=== PATIENT | female | born 1945 | race Asian ===

== ENCOUNTER 2017-05-17 20:21 | Observation (INO) | payer MEDICARE, OTHER ==
[~2017-05-17] VITALS: Ht 142.2 cm; Wt 46.0 kg
[2017-05-17 20:45] VITALS: Ht 142.2 cm; Wt 46.0 kg
[2017-05-18] VITALS (16 sets, daily range): BP systolic 95–157; BP diastolic 36–69; PULSE 64–75; RESP 15–24; TEMP 98.1
--- NOTE | 2017-05-18 01:56 | ERD ---
ER Documentation Chief Complaint Date/Time DATE: 05/18/17 TIME: 01:54 Chief Complaint c/o fish bone to throat. Painful to swallow. HPI 71-year-old female presents to emergency department for complaints of foreign body sensation in the throat, patient was eating fish, feels like a bone got stuck in the throat. Patient has pain upon swallowing, sharp pain, 4/10 scale, denies any shortness of breath. Patient denies any wheezing. ROS All systems reviewed and are negative except as per history of present illness. Medications Home Meds Reported Medications [none] Unknown Strength No Conflict Check 05/18/17 PMhx/Soc Anesthesia Reaction: No Hx Neurological Disorder: No Hx Respiratory Disorders: No Hx Cardiac Disorders: Yes (HTN ) Hx Psychiatric Problems: No Hx Miscellaneous Medical Probl: No Hx Alcohol Use: No Hx Substance Use: No Hx Tobacco Use: No Smoking Status: Never smoker FmHx Family History: No coronary disease, No diabetes, No other Physical Exam Vitals Vital Signs Date Time Temp Pulse Resp B/P Pulse Ox O2 Delivery O2 Flow Rate FiO2 05/17/17 20:45 98.6 78 18 195/84 95 Physical Exam GENERAL: The patient is well developed and appropriate for usual state of health, in no apparent distress. HEENT: Atraumatic. Ears: Normal tympanic membrane, no erythema or bulging. No ear canal swelling. No ear discharge. Nose: normal nasal turbinates, no erythema or swelling. Normal nasal discharge. Throat: oropharynx edematous, no visualized foreign body. No tonsillar swelling or tonsillar exudates. No lymphadenopathy. CHEST: Clear to auscultation bilaterally. There are no rales, wheezes or rhonchi. HEART: Regular rate and rhythm. No murmurs, clicks, rubs or gallops. No S3 or S4. ABDOMEN: Soft, nontender and nondistended. Good bowel sounds. No rebound or guarding. No gross peritonitis. No gross organomegaly or masses. No Mchugh sign or McBurney point tenderness. BACK: No midline or flank tenderness. EXTREMITIES: Equal pulses bilaterally. There is no peripheral clubbing, cyanosis or edema. No focal swelling or erythema. Full range of motion. Grossly neurovascularly intact. NEURO: Alert and oriented. Cranial nerves 2-12 intact. Motor strength in all 4 extremities with 5/5 strength. Sensation grossly intact. Normal speech and gait. SKIN: There is no apparent rash or petechia. The skin is warm and dry. HEMATOLOGIC AND LYMPHATIC: There is no evidence of excessive bruising or lymphedema. No gross cervical, axillary, or inguinal lymphadenopathy. Results 24 hrs PROCEDURE: CT soft tissue neck without contrast. CLINICAL INDICATION: Swallowed a fish bone TECHNIQUE: The study was performed utilizing a GE 64-slice multidetector CT scanner. Direct thin section helically acquired axial sections were obtained through the neck without contrast. Coronal and sagittal reformations were obtained. The images were reviewed on a PACS workstation. The total CTDIvol is 9.11 mGy and the DLP is 255.67 mGy-cm. One or more of the following dose reduction techniques were used: automated exposure control, adjustment of the mA and/or kV according to patient size, or use of iterative reconstruction technique. COMPARISON: No prior studies are available for comparison. FINDINGS: Linear hyperdense structure is seen in the esophagus at the upper C6 level, axial image 48, coronal image 66. The foreign body is horizontal in position measuring 2.3 cm in length.. The nasopharynx, oropharynx, hypopharynx, and larynx are all normal in appearance. The trachea is clear. The parapharyngeal spaces are normal. The thyroid gland is normal in size with no focal mass lesions seen. The submandibular and parotid glands are unremarkable and normal in appearance. No pathologically enlarged lymph nodes are detected. Mild bilateral carotid bulb calcifications are seen. Interstitial densities are seen in the lungs, more pronounced in the right apex. Small nodular density seen in the superior left lower lobe, image 78. There are degenerative changes in the cervical spine, severe at C5-6. There is sclerosis of the left mastoid and soft tissue density in the right middle ear cavity. IMPRESSION: Foreign body in the esophagus at the upper C6 level. No evidence of perforation. Nonspecific interstitial densities in the lungs. Small nodular density in the superior left lower lobe. Physician Sea Date Time Electronically viewed and signed by Physician Sea on 05/18/2017 03: 18 CS/ CC: MIHIR FREDERICK NP Procedures/MDM Medical Decision making: Patient has a retained foreign body, fishbone in the esophagus in the level of C6, I discussed this case with my attending physician , Dr. Quinonez, most likely would need ENT evaluation and procedure for removal of foreign body. Patient will be transferred to ER when for further evaluation and management. Departure Diagnosis: Primary Impression: Retained foreign body Condition: Fair MIHIR FREDERICK NP May 18, 2017 01:56
--- NOTE | 2017-05-18 03:18 | RADRPT ---
PROCEDURE: CT soft tissue neck without contrast. CLINICAL INDICATION: Swallowed a fish bone TECHNIQUE: The study was performed utilizing a GE 64-slice multidetector CT scanner. Direct thin s ection helically acquired axial sections were obtained through the neck without contrast. Coronal a nd sagittal reformations were obtained. The images were reviewed on a PACS workstation. The total CT DIvol is 9.11 mGy and the DLP is 255.67 mGy-cm. One or more of the following dose reduction techniques were used: automated exposure control, adjust ment of the mA and/or kV according to patient size, or use of iterative reconstruction technique. COMPARISON: No prior studies are available for comparison. FINDINGS: Linear hyperdense structure is seen in the esophagus at the upper C6 level, axial image 48, coronal image 66. The foreign body is horizontal in position measuring 2.3 cm in length.. The nasopharynx, o ropharynx, hypopharynx, and larynx are all normal in appearance. The trachea is clear. The paraphary ngeal spaces are normal. The thyroid gland is normal in size with no focal mass lesions seen. The s ubmandibular and parotid glands are unremarkable and normal in appearance. No pathologically enlarg ed lymph nodes are detected. Mild bilateral carotid bulb calcifications are seen. Interstitial den sities are seen in the lungs, more pronounced in the right apex. Small nodular density seen in the s uperior left lower lobe, image 78. There are degenerative changes in the cervical spine, severe at C 5-6. There is sclerosis of the left mastoid and soft tissue density in the right middle ear cavity. IMPRESSION: Foreign body in the esophagus at the upper C6 level. No evidence of perforation. Nonspecific interstitial densities in the lungs. Small nodular density in the superior left lower lo be. Physician Sea Date Time Electronically viewed and signed by Physician Sea on 05/18/2017 03:18 /
[2017-05-18] MEDS ORDERED: VALS1TAB78 PO (05:25)
[2017-05-18] MEDS ORDERED: TENO300T2 PO (05:25)
[2017-05-18] MEDS ORDERED: ESOM40CA PO (05:25)
[2017-05-18] MEDS ORDERED: EZET10TA3 PO (05:25)
[2017-05-18] MEDS ORDERED: ACETAMINOPHEN 650 MG SUPP PR PRN (05:30)
[2017-05-18] MEDS ORDERED: ONDANSETRON 4 MG INJ IV PRN (05:30)
[2017-05-18] MEDS ORDERED: morphine 2 MG INJ IV PRN (05:30)
[2017-05-18] MEDS ORDERED: NACL 0.9% 3 ML SYG IV SCH (05:30)
[2017-05-18] MEDS ORDERED: PANTOPRAZOLE 40 MG INJ IV SCH (06:00)
[2017-05-18] MEDS: SOD CHLORIDE 0.9% 1,000 ML IV SCH ×2 (06:26→21:50)
--- NOTE | 2017-05-18 06:54 | HP ---
Date/Time of Note Date/Time of Note DATE: 05/18/17 TIME: 06:47 Assessment/Plan VTE Prophylaxis VTE Prophylaxis Intervention: SCD's Lines/Catheters IV Catheter Type (from Rust): Saline Lock Assessment/Plan Chief Complaint/Hosp Course This is a 71-year-old female being admitted to the [facility] floor for: #1 Foreign body in the esophagus: There is a foreign body at the upper C6 level in the esophagus. No evidence of perforation. At the current time we will keep the patient n.p.o. provide IV morphine for pain. Normal saline fluid hydration. ENT was consulted by the ED, await further management from ENT. #2 incidental nodular density: Incidental finding of a small nodular density of the superior left upper lobe of the lung seen on on on CT scan of the neck. Will obtain an x-ray and then discuss with patient. Patient likely can have this monitor as an outpatient. #3 hypertension: We will hold oral medication at this time secondary to #1. Will monitor blood pressure at this time if needed we will add on hydralazine as needed. #4 DVT prophylaxis: SCDs, Protonix Further treatment strategy will be implemented as per the clinical course Problems: HPI/ROS Admit Date/Time Admit Date/Time Hx of Present Illness Chief complaint: Food stuck in throat This is a 71-year-old female presents to emergency department for complaints of foreign body sensation in the throat, patient was eating fish, feels like a bone got stuck in the throat. Patient has pain upon swallowing, sharp pain, 4/ 10 scale, denies any shortness of breath. Patient denies any wheezing. Denies any nausea or vomiting. Allergies: NKDA medications: See SEP ROS Const: As per HPI Eyes : No pain discharge or redness or change in visual acuity ENT: As per HPI Respiratory: As per HPI Cardiovascular: No chest pain, palpitation, PND, or edema GI : no change in appetite, abdominal pain, nausea, vomiting, diarrhea, constipation, or change in the color his stool Genitourinary: No dysuria, hematuria, flank pain , discharge or CVA tenderness Musculoskeletal: No joint pain, back pain, neck pain, restricted range of motion in neck or joints Skin: No rash, bruising or hives Neuro: No headache, dizziness, syncope, seizure, focal weakness Endocrine: No polyuria, polydipsia, temperature intolerance Psych: No hallucination, depression, anxiety or suicidal ideation PMH/Family/Social Past Medical History Hypertension Past Surgical History Past Surgical Hx: no surgical history Family History Significant Family History: no pertinent family hx Social History Smoking Status: Never smoker Drug Use: none Exam/Review of Systems Vital Signs Vitals Vital Signs Date Time Temp Pulse Resp B/P Pulse Ox O2 Delivery O2 Flow Rate FiO2 05/18/17 06:34 98.1 67 18 155/70 99 Room Air Exam Exam General: This is a pleasant female lying in bed in mild distress from pain or throat HEENT: Atraumatic, normocephalic. The pupils are equal, round and reactive. Extraocular motor are intact, no foreign body visualized on examination of the oral cavity Neck: Tender to palpation along the anterior neck region Lungs: Clear to auscultation bilaterally no crackles rales or wheezing Heart: Normal S1-S2, Regular rhythm and rate. No murmur, S3, or S4 Abdomen: Soft , nontender, nondistended , bowel sounds are present. No guarding no rebound tenderness , No masses or organomegaly. No costovertebral temporal angle mass Extremities: Normal to inspection, no edema no cyanosis Neurologic: Normal mental status, speech normal, cranial nerves II through XII are intact, motor and sensory are intact, no focal weakness Additional Comments PROCEDURE: CT soft tissue neck without contrast. CLINICAL INDICATION: Swallowed a fish bone TECHNIQUE: The study was performed utilizing a GE 64-slice multidetector CT scanner. Direct thin section helically acquired axial sections were obtained through the neck without contrast. Coronal and sagittal reformations were obtained. The images were reviewed on a PACS workstation. The total CTDIvol is 9.11 mGy and the DLP is 255.67 mGy-cm. One or more of the following dose reduction techniques were used: automated exposure control, adjustment of the mA and/or kV according to patient size, or use of iterative reconstruction technique. COMPARISON: No prior studies are available for comparison. FINDINGS: Linear hyperdense structure is seen in the esophagus at the upper C6 level, axial image 48, coronal image 66. The foreign body is horizontal in position measuring 2.3 cm in length.. The nasopharynx, oropharynx, hypopharynx, and larynx are all normal in appearance. The trachea is clear. The parapharyngeal spaces are normal. The thyroid gland is normal in size with no focal mass lesions seen. The submandibular and parotid glands are unremarkable and normal in appearance. No pathologically enlarged lymph nodes are detected. Mild bilateral carotid bulb calcifications are seen. Interstitial densities are seen in the lungs, more pronounced in the right apex. Small nodular density seen in the superior left lower lobe, image 78. There are degenerative changes in the cervical spine, severe at C5-6. There is sclerosis of the left mastoid and soft tissue density in the right middle ear cavity. IMPRESSION: Foreign body in the esophagus at the upper C6 level. No evidence of perforation. Nonspecific interstitial densities in the lungs. Small nodular density in the superior left lower lobe. Mckayla Schroeder Physician Date Time Electronically viewed and signed by Mckayla Schroeder Physician on 05/18/2017 03: 18 CS/ CC: MIHIR FREDERICK [employer] Medications Medications Current Medications Sodium Chloride (NS) 1,000 ml @ 70 mls/hr [id number] IV Last administered on 06:26; Admin Dose 70 MLS/HR; Start 05/18/17 at 05:21 Ondansetron HCl (Zofran Inj) 4 mg Q6H PRN IV NAUSEA AND/OR VOMITING; Start at 05:30 Acetaminophen (Tylenol Supp) 650 mg Q6H PRN [place] PAIN LEVEL 1-3 OR FEVER; Start 05/18/17 at 05:30 Morphine Sulfate (morphine) 1 mg Q4H PRN IV SEVERE PAIN LEVEL 7-10; Start at 05:30 Pantoprazole (Protonix Iv) 40 mg DAILY@06 IV Last administered on 05/18/17 06 :25; Admin Dose 40 MG; Start 05/18/17 at 06:00 SHI BOTELLO May 18, 2017 06:54
--- NOTE | 2017-05-18 07:47 | RADRPT ---
PROCEDURE: XR Chest. CLINICAL INDICATION: Small nodular density in the left upper lobe on CT of neck TECHNIQUE: PA and Lateral views of the chest were obtained. COMPARISON: CT scan from earlier in the same day. FINDINGS: Atherosclerotic changes are seen in the aortic arch. The cardiac silhouette is unremarkable. The lungs are clear. No signs of pleural fluid or pneumothorax are seen. The osseous structures and soft tissues are unremarkable. IMPRESSION: No definite abnormalities are identified. The small nodular density in the left upper lobe on the CT scan of the neck from earlier in the same day is not visualized on this plain radiographs. A low do se screening CT could be performed for further evaluation and characterization. RPTAT:AAJJ Physician Lynn Date Time Electronically viewed and signed by Physician Lynn on 05/18/2017 07:46 /
[2017-05-18] MEDS ORDERED: LIDOCAINE 1% (MDV) 20 ML INJ ONE (19:38)
[2017-05-18] MEDS ORDERED: PROPOFOL 20 ML ONE (19:38)
[2017-05-18] MEDS ORDERED: LABETALOL HCL 20MG INJ ONE (19:45)
[2017-05-18] MEDS ORDERED: ONDANSETRON 4 MG INJ ONE (19:46)
--- NOTE | 2017-05-18 20:04 | CONS ---
Date/Time of Note Date/Time of Note DATE: 05/18/17 TIME: 20:00 Assessment/Plan Assessment/Plan Additional Assessment/Plan Assessment: Foreign body in the proximal esophagus (fishbone) History of hypertension Plan: EGD foreign body removal. Patient and were informed procedure including risks, benefits and alternatives. Agreeable to proceed. Further recommendation will depend on patient's clinical course . Consultation Date/Type/Reason Admit Date/Time Date of Consultation: May 18, 2017 Type of Consultation: GI Reason for Consultation Foreign body (fish bone) in the proximal esophagus Hx of Present Illness 71-year-old female with sensation of foreign body while eating fish. CT of the neck shows a significant foreign body in the proximal esophagus at level C6. The patient complains of odynophagia. Endoscopic evaluation attempt to remove foreign body will be undertaken at this time. The procedure was explained in detail to the patient including risks, benefits and alternatives. She is agreeable to proceed. Constitutional: improved, no complaints Eyes: no complaints ENT: no complaints Respiratory: no complaints Cardiovascular: no complaints Gastrointestinal: other (See HPI) Genitourinary: no complaints Musculoskeletal: no complaints Skin: no complaints Neurologic: no complaints Endocrine: no complaints Lymphatic: no complaints Psychological: nl mood/affect, no complaints Immunologic: no complaints Past Medical History Medical History: hypertension Past Surgical History Past Surgical Hx: no surgical history Family History Significant Family History: no pertinent family hx Social History Alcohol Use: none Smoking Status: Never smoker Drug Use: none Exam/Review of Systems Vital Signs Vitals Vital Signs Date Time Temp Pulse Resp B/P Pulse Ox O2 Delivery O2 Flow Rate FiO2 05/18/17 14:30 98.3 63 18 152/69 96 05/18/17 08:06 Room Air Exam PHYSICAL EXAMINATION: GENERAL: Well developed, well nourished, alert & oriented x 3, in no acute distress SKIN: No lesions, no stigmata chronic liver disease, no evidence of bleeding diathesis LYMPHATIC: No palpable lymphadenopathy. HEAD: Normocephalic, atraumatic, no tenderness. EYES: Pupils equal reactive to light and accommodation, full extraocular movements, sclera clear, non-icteric, no discharge. EARS/NOSE AND THROAT: Ears normal, nose normal, oropharynx normal, oral membranes well hydrated without lesions. NECK: Supple, no masses, thyroid normal, JVP within normal limits, carotids normal without bruits. CHEST: Inspection within normal limits. CARDIOVASCULAR: Heart: Regular rate and rhythm, no murmurs, gallops or rubs. Peripheral pulses present within normal limits, no cyanosis, clubbing or edemas. No pulsatile abdominal mass RESPIRATORY: Lungs clear to auscultation and percussion, no wheezing, no rubs GASTROINTESTINAL AND LIVER: Abdomen: Soft, non tenderness, non-distended, no hernias, no masses, no organomegaly, no ascites, no guarding, no rebound tenderness, normoactive bowel sounds. Rectal: Deferred. GENITOURINARY: [Female genitalia within normal limits.] EXTREMITIES: No cyanosis, clubbing or edema. [MUSCULO-SKELETAL: Gait and station within normal limits, range of motion adequate.] Medications Medications Current Medications Sodium Chloride (NS) 1,000 ml @ 70 mls/hr [id number] IV Last administered on 06:26; Admin Dose 70 MLS/HR; Start 05/18/17 at 05:21 Ondansetron HCl (Zofran Inj) 4 mg Q6H PRN IV NAUSEA AND/OR VOMITING; Start at 05:30 Acetaminophen (Tylenol Supp) 650 mg Q6H PRN [place] PAIN LEVEL 1-3 OR FEVER; Start 05/18/17 at 05:30 Morphine Sulfate (morphine) 1 mg Q4H PRN IV SEVERE PAIN LEVEL 7-10; Start at 05:30 Famotidine (Pepcid Iv) 20 mg BID IV ; Start 05/19/17 at 09:00 Copies To: CC: AYDEE LOVE MD, MORDO MD May 18, 2017 20:04
--- NOTE | 2017-05-18 20:08 | OPPN ---
Date/Time of Note Date/Time of Note DATE: 05/18/17 TIME: 20:04 Proc Note GI Procedure Date 05/18/17 Indication: other (Foreign body in the proximal esophagus) Pre-procedure Diagnosis Foreign body proximal esophagus Post-procedure Diagnosis Impression: Foreign body/fish bone measuring approximately 3 cm lodged in the proximal esophagus. Post foreign body removal with no apparent injury Otherwise normal EGD Plan: Barium swallow with Gastrografin early tomorrow morning Pending review restart oral diet and possible discharge . Procedure Performed: Endoscopy (Plus foreign body removal) Surgeon AYDEE LOVE MD See signature line Silk Screen Cutter none Anesthesia Type: general Anesthesiologist: DA RANDALL DO Tourniquet Time none EBL none Transfusion required none Biopsy 1: None Grafts/Implants none Tubes/Drains none Complication(s) none Disposition: PACU Procedure Description Preoperative Diagnosis: After informed consent, with the patient/relatives understanding the procedure, its indications, potential risks and complications, including but not limited to : allergic reaction, bleeding, perforation or infection, and after all pertinent questions were answered to the patients satisfaction, the patient/ relatives signed witnessed informed consent. Following this, premedication was administered slowly IV push under careful cardiovascular and respiratory monitoring with pulse oximetry, automatic blood pressure, and rotogravure press operator. Once the sedative effect was achieved the patient was place in the left lateral decubitus, the panendoscope was introduced and advanced under visual control. Careful examination of the upper gastrointestinal tract, both on insertion as well as withdrawal of the instrument disclosing the following findings: ESOPHAGUS: the mucosa of the entire esophagus was carefully examined and showed the following findings: There is fishbone measuring approximately 3 cm horizontally impacted in the proximal esophagus were able to carefully dislodge 1 of the ends of the fishbone to turn it protocol and then secured with a grasping forceps and retrieved it with care and with no evidence of injury. Reexamination of the mucosa he mucosa appears within normal limits. There is no evidence of esophagitis, varices, neoplasm, or stricture. No Hiatal Hernia identified. STOMACH: Upon entrance to the stomach air was insufflated, the gastric saunders distended normally. The mucosa of the fundus, body and antrum of the stomach was carefully examined both head-on and on retroflexion, and showed the following findings: the mucosa appears within normal limits with no abnormalities. There is no evidence of gastritis, ulcers or neoplasm. PYLORUS: The pylorus was carefully examined and showed the following findings: the pylorus appears patent and within normal limits, with no evidence of gastric outlet obstruction. DUODENUM: The duodenal mucosa was carefully examined in the duodenal bulb as well as the second portion of the duodenum and showed the following findings: the mucosa appears unremarkable with no evidence of duodenitis, ulcer or neoplasm. Copies To: CC: AYDEE LOVE MD, MORDO MD May 18, 2017 20:08
[2017-05-19 02:14] VITALS: BP 109/54; RESP 20
[2017-05-19 07:58] VITALS: BP 123/59; RESP 16
[2017-05-19] MEDS ORDERED: FAMOTIDINE 20 MG INJ IV SCH (09:00)
[2017-05-19] MEDS: SOD CHLORIDE 0.9% 1,000 ML IV SCH ×2 (09:57→12:21)
--- NOTE | 2017-05-19 10:12 | PN ---
Date/Time of Note Date/Time of Note DATE: 05/19/17 TIME: 10:00 Assessment/Plan VTE Prophylaxis VTE Prophylaxis Intervention: ambulation Lines/Catheters IV Catheter Type (from Nrs): Peripheral IV Assessment/Plan Chief Complaint/Hosp Course Assessment: Foreign body in the proximal esophagus (fishbone) History of hypertension Plan: EGD foreign body removal 05/18/17 * Foreign body/fish bone measuring approximately 3 cm lodged in the proximal esophagus. * Post foreign body removal with no apparent injury * Otherwise normal EGD Barium swallow with Gastrografin today Pending results restart oral diet and possible discharge Subjective: Course reviewed with nursing staff Patient interviewed and examined All labs, imaging and other results reviewed The patient is feeling well Headed down for barium swallow She feels like she is ready to eat No complaints of pain or dysphasia . Problems: Exam/Review of Systems Vital Signs Vitals Vital Signs Date Time Temp Pulse Resp B/P Pulse Ox O2 Delivery O2 Flow Rate FiO2 05/19/17 07:58 98.3 61 16 123/59 96 05/18/17 21:11 Room Air Intake and Output 05/18/17 05/18/17 05/19/17 15:00 23:00 07:00 Intake Total 735 ml 560 ml Output Total 600 ml Balance 135 ml 560 ml Exam Constitutional: alert, oriented Psych: no complaints Head: atraumatic, normocephalic Eyes: nl conjunctiva ENMT: nl external ears & nose Neck: non-tender, supple Respiratory: clear to auscultation Cardiovascular: regular rate and rhythm Gastrointestinal: nl liver, spleen, non-tender, soft Genitourinary - Female: nl external genitalia Musculoskeletal: nl extremities to inspection Extremities: normal pulses Skin: nl turgor Medications Medications Current Medications Sodium Chloride (NS) 1,000 ml @ 70 mls/hr [id number] IV Last administered on t 06:26; Admin Dose 70 MLS/HR; Start 05/18/17 at 05:21 Ondansetron HCl (Zofran Inj) 4 mg Q6H PRN IV NAUSEA AND/OR VOMITING; Start at 05:30 Acetaminophen (Tylenol Supp) 650 mg Q6H PRN [place] PAIN LEVEL 1-3 OR FEVER; Start 05/18/17 at 05:30 Morphine Sulfate (morphine) 1 mg Q4H PRN IV SEVERE PAIN LEVEL 7-10; Start at 05:30 Famotidine (Pepcid Iv) 20 mg BID IV Last administered on 05/19/17t 08:44; Admin Dose 20 MG; Start 05/19/17 at 09:00 CASEY FERMIN May 19, 2017 10:11
[2017-05-19] MEDS ORDERED: DIATR MEGLU/DIATRIZOATE SODIUM 120 ML BTL ONE (10:47)
--- NOTE | 2017-05-19 11:30 | RADRPT ---
PROCEDURE: Gastrographin esophagram CLINICAL INDICATION: 71-year-old female with history of fish bone stuck in the esophagus. Status p ost endoscopic removal. Rule out esophageal leak. TECHNIQUE: Esophagram performed following oral ingestion of gastrographin with multiple spot image s of the esophagus obtained. Fluoroscopic time: 0.7 minutes Number of images/sequences: 4.0 COMPARISON: None FINDINGS: The esophagus was normal size shape position and motility. Mucosal fold pattern appears within edyta l limits. There is no evidence of mucosal abnormality, diverticula, mass or stenosis. There was no evidence of aspiration or penetration. There was no evidence of hiatal hernia or gastroesophageal r eflux seen during the examination. Visualized portions of the stomach appear normal. IMPRESSION: Normal esophagram. No evidence of contrast extravasation or leakage. RPTAT: QQ .Scot Moore MD, Date Time Electronically viewed and signed by .Scot Moore MD, on 05/19/2017 11:30 .L/
[2017-05-19 13:16] VITALS: BP 140/65; RESP 18
--- NOTE | 2017-05-19 14:25 | DS ---
Date/Time of Note Date/Time of Note DATE: 05/19/17 TIME: 14:19 Discharge Summary Admission/Discharge Info Admit Date/Time May 18, 2017 at 03:59 Discharge Date/Time Patient Condition: Good Hx of Present Illness Chief complaint: Food stuck in throat This is a 71-year-old female presents to emergency department for complaints of foreign body sensation in the throat, patient was eating fish, feels like a bone got stuck in the throat. Patient has pain upon swallowing, sharp pain, 4/ 10 scale, denies any shortness of breath. Patient denies any wheezing. Denies any nausea or vomiting. Allergies: NKDA medications: See [facility] Hospital Course Dr Nelson perormed EGD foreign body removal 05/18/17 * Foreign body/fish bone measuring approximately 3 cm lodged in the proximal esophagus. * Post foreign body removal with no apparent injury * Otherwise normal EGD Barium swallow with Gastrografin was performed which was nomral Patient tolerated normal PO today Cleared for discharge . Home Meds Reported Medications Ezetimibe* (Zetia*) 10 Mg Tablet, 10 MG PO DAILY, TAB 05/18/17 Tenofovir Disoproxil Fumarate (Viread) 300 Mg Tablet, 300 MG PO DAILY, TAB 05/18/17 Esomeprazole Mag Trihydrate (Nexium) 40 Mg Capsule.dr, 40 MG PO DAILY, #30 CAP 05/18/17 Valsartan-Hydrochlorothiazide (Valsartan-HCTZ) 160-25 Mg Tablet, 1 TAB PO DAILY , #30 TAB 05/18/17 Discontinued Reported Medications [none] Unknown Strength No Conflict Check 05/18/17 Primary Care Provider Not On Staff Doctor ZACHARIAH GÓMEZ MD May 19, 2017 14:25
== END 2017-05-19 18:00 | disposition home or self-care (01) ==
LOC: FTE 20:21 → MS1 05-18 03:59
PROVIDERS: ADMIT Family Medicine; ATTEND Family Medicine
DX: T18.128A Food in esophagus causing other injury, initial encounter (principal); I10 Essential (primary) hypertension; E78.00 Pure hypercholesterolemia, unspecified; X58.XXXA Exposure to other specified factors, initial encounter
CPT/HCPCS: 43247; 70490; 71020; 74230; 96374; 99285; C9113; G0378; J2405; J7030